=== PATIENT | female | born 1990 | race Two or more races ===

== ENCOUNTER 2017-11-20 11:50 | Emergency (ER) | payer SELFPAY ==
[~2017-11-20] VITALS: Ht 167.6 cm; Wt 63.5 kg
[~2017-11-20 11:50] MED LIST: PRENCAP15
[2017-11-20 15:30] VITALS: BP 127/69
== END 2017-11-20 15:47 | disposition home or self-care (01) ==
LOC: ER 11:50
DX: O20.0 Threatened abortion (principal); Z3A.01 Less than 8 weeks gestation of pregnancy
CPT/HCPCS: 36415; 76801; 84702

== ENCOUNTER 2018-06-18 05:25 | Observation (INO) | payer MEDICAID ==
[~2018-06-18] VITALS: Ht 167.6 cm; Wt 68.9 kg
[2018-06-18] MEDS ORDERED: LOPERAMIDE HCL 2 MG CAP PO ONE (06:00)
[2018-06-18] MEDS ORDERED: ONDANSETRON HCL 4 MG/2 ML VIAL IV PRN (06:00)
[2018-06-18] MEDS ORDERED: LACTATED RINGER'S 500 ML IV ONE ×2 (06:00→06:45)
[2018-06-18 06:09] LABS: Urine Bacteria NONE SEEN /hpf (None Seen); Urine Blood Negative /uL (Negative); Urine Mucus FEW (None Seen); Urine Specific Gravity 1.017 (1.001-1.035); Urine WBC 5 /hpf (0 - 5)
[2018-06-18 06:33] LABS: Alcohol, Urine < 3.0 mg/dL (0-5); Amphetamine Screen, Urine NEGATIVE (NEGATIVE); Barbiturate Scree,Urine NEGATIVE (NEGATIVE); Benzodiazephine Screen, Urine NEGATIVE (NEGATIVE); Cannabinoid Screen, Urine NEGATIVE (NEGATIVE); Cocaine Screen, Urine NEGATIVE (NEGATIVE); Opiate Scree,Urine NEGATIVE (NEGATIVE); Phencyclidine Screen, Urine NEGATIVE (NEGATIVE)
[2018-06-18] MEDS ORDERED: LACTATED RINGER'S 1,000 ML IV SCH (06:45)
[2018-06-18] MEDS ORDERED: OSELTAMIVIR 75 MG CAP PO ONE (07:30)
== END 2018-06-18 08:45 | disposition home or self-care (01) | DRG 566 ==
LOC: LDRP 05:25
PROVIDERS: ADMIT Obstetrics & Gynecology; ATTEND Obstetrics & Gynecology
DX: O98.513 Other viral diseases complicating pregnancy, third trimester (principal); O26.893 Other specified pregnancy related conditions, third trimester; B34.9 Viral infection, unspecified; O21.2 Late vomiting of pregnancy; O99.89 Other specified diseases and conditions complicating pregnancy, childbirth and the puerperium; M54.9 Dorsalgia, unspecified; R19.7 Diarrhea, unspecified; O62.9 Abnormality of forces of labor, unspecified; Z3A.37 37 weeks gestation of pregnancy
CPT/HCPCS: 59025; 80307; 81001; 81002; 96361; 96374; G0378; J2405; 96366

== ENCOUNTER 2019-01-01 11:33 | Emergency (ER) | payer MEDICAID ==
[~2019-01-01] VITALS: Ht 170.2 cm; Wt 67.6 kg
[2019-01-01 13:45] LABS: Urine Bacteria NONE SEEN /hpf (None Seen); Urine Blood 1+ /uL (Negative); Urine Mucus FEW (None Seen); Urine Specific Gravity 1.023 (1.001-1.035); Urine WBC 1 /hpf (0 - 5)
[2019-01-01 14:13] VITALS: BP 115/65
== END 2019-01-01 14:18 | disposition home or self-care (01) ==
LOC: ER 11:33
DX: O21.9 Vomiting of pregnancy, unspecified (principal); Z3A.09 9 weeks gestation of pregnancy
CPT/HCPCS: 81001